=== PATIENT | male | born 1980 | race Asian ===

== ENCOUNTER 2018-05-22 17:30 | Emergency (ER) | payer OTHER ==
[~2018-05-22] VITALS: Ht 165.1 cm; Wt 73.9 kg
[2018-05-22 18:26] VITALS: Ht 165.1 cm; Wt 73.9 kg
[2018-05-22 21:30] VITALS: BP 116/70
== END 2018-05-22 21:30 | disposition home or self-care (01) ==
LOC: ED 17:30
DX: M54.30 Sciatica, unspecified side (principal)